=== PATIENT | male | born 2000 | race Caucasian/White ===

== ENCOUNTER 2022-04-12 11:53 | Emergency (ER) | payer OTHER, BC ==
[~2022-04-12] VITALS: Ht 177.8 cm; Wt 68.2 kg
[2022-04-12] MEDS ORDERED: TETanus/Pertussis (Acell)/Diphther VAC/PF (Tdap-Adult) 0.5ml syringe IMVAC ONE (12:15)
[2022-04-12] MEDS ORDERED: bacitracin 15gm ointment TP ONE (12:15)
[2022-04-12 12:34] VITALS: BP 113/67
[2022-04-12] MEDS ORDERED: LIDOcaine 1% 30ml preserv. free vial ONE (12:57)
[2022-04-12] MEDS ORDERED: LIDOcaine 1% 30ml preserv. free vial IJ ONE (12:58)
== END 2022-04-12 13:52 | disposition home or self-care (01) ==
LOC: ER 11:54
DX: S61.012A Laceration without foreign body of left thumb without damage to nail, initial encounter (principal); Z72.89 Other problems related to lifestyle; W26.8XXA Contact with other sharp object(s), not elsewhere classified, initial encounter; Y93.89 Activity, other specified; Y92.89 Other specified places as the place of occurrence of the external cause; Y99.8 Other external cause status
CPT/HCPCS: 73140; 90471; 90715; 99283; J3490; A6449